=== PATIENT | female | born 1970 | race Hispanic/Latino ===

== ENCOUNTER 2018-09-06 22:03 | Emergency (ER) | payer MEDICARE, OTHER ==
[2018-09-06 22:27] LABS: APPEARANCE,URINE Clear (CLEAR); BILIRUBIN,URINE Negative (NEGATIVE); COLOR,URINE Yellow (YELLOW); GLUCOSE, URINE (UA) Negative (NEGATIVE); KETONES,URINE Negative (NEGATIVE); LEUKOCYTE ESTERASE ,URINE Moderate (NEGATIVE); NITRATE,URINE Negative (NEGATIVE); OCCULT BLOOD,URINE Negative (NEGATIVE); PH,URINE 6.5 (5.0-8.0); PROTEIN,URINE Negative (NEGATIVE)
[2018-09-06 22:42] LABS: ABG OXYGEN SATURATION 82.6 % (95.0-99.0); HCO3,VENOUS BLOOD GAS 21.3 (21.0-28.0); PCO2,VENOUS BLOOD GAS 36 (32-45); PH,VENOUS BLOOD GAS 7.395 (7.350-7.450)
[2018-09-06 22:50] LABS: BACTERIA,URINE Rare /HPF (None Seen); RBC,URINE None Seen /HPF (0-1)
[2018-09-06 22:51] LABS: BASOPHILS % (AUTO) 0.6 % (0.0-5.0); EOSINOPHILS % (AUTO) 1.7 % (0.0-8.0); HEMATOCRIT 36.9 % (36-48); LYMPHOCYTES % (AUTO) 30.4 % (21.0-51.0); MEAN CORPUSCULAR HEMOGLOBIN 29.4 pg (27.0-33.0); MEAN CORPUSCULAR HGB CONC 34.1 g/dL (32.0-36.0); MEAN CORPUSCULAR VOLUME 86.3 fL (79-99); NEUTROPHILS % (AUTO) 58.3 % (40.0-77.0); PLATELET COUNT (AUTO) 218 K/uL (130-400); RED BLOOD CELL COUNT(AUTO) 4.27 MIL/uL (4.00-5.50); RED CELL DISTRIBUTION WIDTH 12.2 % (11.0-15.5); WHITE BLOOD COUNT (AUTO) 6.4 K/uL (4.8-10.8)
[2018-09-06 22:51] LABS: MUCUS,URINE Few LPF (None Seen); SQUAMOUS EPITHELIAL CELL,UR Few /HPF (0-2)
[2018-09-06 23:00] LABS: CREATININE 0.8 mg/dL (0.5-1.5); POTASSIUM 3.8 mmol/L (3.5-5.1)
[2018-09-06 23:13] LABS: ALBUMIN 3.6 g/dL (3.5-5.0); BILIRUBIN,TOTAL 0.3 mg/dL (0.2-1.0); THYROID STIMULATING HORMONE 3.7 uIU/mL (0.36-3.74); TOTAL PROTEIN, SERUM 6.7 g/dL (6.0-8.3)
== END 2018-09-07 00:06 | disposition home or self-care (01) ==
LOC: EDH 22:03
DX: N39.0 Urinary tract infection, site not specified (principal); R10.13 Epigastric pain; R42 Dizziness and giddiness; M54.2 Cervicalgia; Z98.890 Other specified postprocedural states
CPT/HCPCS: 36415; 36600; 71045; 80053; 81001; 81025; 82435; 82803; 82947; 83605; 83690; 84132; 84295; 84443; 84484; 85025; 93005

== ENCOUNTER → 2024-11-23 | Outpatient (CLI) | payer OTHER ==
--- NOTE | 2024-11-23 12:01 | HMCIMG ---
CT CORONARY CALCIFICATION SCORING: Anatomic images were reviewed. The calcium score is being generated and reported separately. This report is for the visualized anatomy only. Visualized portions of the lungs are clear. Hilar and mediastinal structures appear normal. Osseous structures are unremarkable. Impression: 1. Negative noncardiac anatomic findings. 2. The calcium score is 0 consistent with absence of calcified plaque. CT was performed with one or more following dose reduction techniques: automated exposure control, adjustment of the mA and kv according to patient's size, or use of a iterative reconstruction technique.
== END | disposition home or self-care (01) ==
LOC: RAH 08:30
PROVIDERS: ATTEND Internal Medicine Cardiovascular Disease
DX: Z13.6 Encounter for screening for cardiovascular disorders (principal)
CPT/HCPCS: 75571

== ENCOUNTER 2025-07-03 16:21 | Emergency (ER) | payer OTHER ==
[~2025-07-03] VITALS: Ht 162.6 cm; Wt 71.7 kg
--- NOTE | 2025-07-03 16:32 | ERN ---
ED Note History of Present Illness Stated Complaint: DIZZINESS Chief Complaint: Dizzy/Light Headed Time Seen by MD: 16:24 Dictation: 55-YEAR-OLD FEMALE COMING IN FROM LOCAL URGENT CARE WITH HER SON WITH COMPLAINTS OF DIZZINESS AND VERTIGO WORSE WHEN SHE TURNS HER HEAD ONSET WAS THIS MORNING. SHE STATES ADDITIONALLY SHE WAS WALKING HER DOG THIS MORNING AND SHE FELL BECAUSE OF THE VERTIGO. SHE SAID SHE WAS DIAGNOSED WITH VERTIGO APPROXIMATELY 15 YEARS AGO BY HER DOCTOR IN [place] HOWEVER WAS NEVER TREATED. NIH IS 0, GAIT IS STEADY TO TRIAGE. Allergies: Coded Allergies: sulfamethoxazole (Unverified Allergy, Unknown, 07/03/25) trimethoprim (Unverified Allergy, Unknown, 07/03/25) Past Medical History Past Medical History: Hypertension Surgical History: Other History: Not Applicable RN Note Reviewed/Agreed w/PFSH: Yes Review of System Dictation CONSTITUTIONAL: NEGATIVE EXCEPT FOR HPI HEAD/FACE: NEGATIVE EXCEPT FOR HPI EENT: NEGATIVE EXCEPT FOR HPI RESPIRATORY: NEGATIVE EXCEPT FOR HPI GASTROINTESTINAL/ABDOMINAL: NEGATIVE EXCEPT FOR HPI NAUSEA VOMITING GENITOURINARY: NEGATIVE EXCEPT FOR HPI MUSCULOSKELETAL: NEGATIVE EXCEPT FOR HPI INTEGUMENTARY: NEGATIVE EXCEPT FOR HPI NEUROLOGICAL/PSYCH: NEGATIVE EXCEPT FOR HPI DIZZINESS HEMATOLOGIC/LYMPHATIC: NEGATIVE EXCEPT FOR HPI ALL SYSTEMS NEGATIVE, EXCEPT NOTED ABOVE. 13 POINT REVIEW OF SYSTEMS ASSESSED AND ALL NEGATIVE EXCEPT FOR ABOVE. Initial Vital Sign VS Vital Signs Date Time Temp Pulse Resp B/P (MAP) Pulse Ox O2 Delivery O2 Flow Rate FiO2 07/03/25 16:23 97.9 73 20 139/83 99 Room Air 0 07/03/25 17:10 21 Physical Exam Dictation VITAL SIGNS REVIEWED GENERAL APPEARANCE: ALERT, ORIENTED X 3, NO ACUTE DISTRESS, WELL DEVELOPED, NOURISHED. HEAD AND FACE: NON-TRAUMATIC. EYES: PERRL, PINK CONJUNCTIVAS, EYELID NO TRAUMA, ANTERIOR CHAMBER WITH ARCUS SENILIS. RIGHT HORIZONTAL NYSTAGMUS, REPRODUCES VERTIGO EARS: PINNAS INTACT AND NO SIGNS OF TRAUMA OR ERYTHEMA EAR CANALS CLEAR AND NO DISCHARGE TM NO ERYTHEMA NOSE: NO DISCHARGE, NO BLEEDING. OROPHARYNX: MOUTH NORMAL, TONGUE PINK, PHARYNX CLEAR,NO ERYTHEMA, TONSILS NO EXUDATES, NO ABSCESSES NOTED, MUCOUS MEMBRANE MOIST NECK: SUPPLE, NON-TENDER, NO THYROMEGALY, NO MASSES, NO JVD, NO BRUITS BREAST:DEFERRED CHEST:NO TENDERNESS, NO CREPITUS, NO PARADOXICAL MOVEMENT, NO RETRACTIONS LUNGS:CLEAR, WELL-VENTILATED, SYMMETRIC, NO RALES, NO WHEEZING, NO RHONCHI, NO STRIDOR, GOOD BREATH SOUNDS BILATERALLY HEART: REGULAR RATE, REGULAR RHYTHM, NO MURMUR, NO GALLOPS VASCULAR: NO PERIPHERAL EDEMA, ABDOMEN: SOFT, POSITIVE BOWEL SOUNDS, NONDISTENDED, NO GUARDING, NONTENDER, NO REBOUND, NO MASSES NO HEPATOMEGALY, NO SPLENOMEGALY, NO SALEH'S SIGN, NO HERNIAS. RECTAL: DEFERRED GENITAL: DEFERRED NEUROLOGICAL: NORMAL SPEECH, MOTOR FUNCTION INTACT, SENSORY FUNCTION INTACT MUSCULOSKELETAL: NECK NONTENDER, FULL RANGE OF MOTION, BACK NONTENDER, FULL RANGE OF MOTION, EXTREMITIES: NONTENDER, FULL RANGE OF MOTION SKIN: COLOR PINK, DRY, NO TURGOR, NO RASH, NO LACERATIONS, NO ABRASIONS, NO CONTUSIONS. LYMPHATIC: DEFERRED Results (Laboratory/Radiology) Laboratory/Radiology Laboratory Tests Test 07/03/25 16:56 White Blood Count 6.9 K/uL (4.8-10.8) Red Blood Count 5.04 MIL/uL (4.00-5.50) Hemoglobin 15.6 g/dL (12.0-16.0) Hematocrit 44.4 % (36-48) Mean Corpuscular Volume 88.1 fL (79-99) Mean Corpuscular Hemoglobin 31.0 pg (27.0-33.0) Mean Corpuscular Hemoglobin Concent 35.1 g/dL (32.0-36.0) Red Cell Distribution Width 12.3 % (11.0-15.5) Platelet Count 266 K/uL (130-400) Mean Platelet Volume 9.5 fL (7.5-10.5) Immature Granulocyte % (Auto) 0.4 % (0-1) Neutrophils (%) (Auto) 82.1 % (40.0-77.0) H Lymphocytes (%) (Auto) 14.3 % (21.0-51.0) L Monocytes (%) (Auto) 2.6 % (3.0-13.0) L Eosinophils (%) (Auto) 0.3 % (0.0-8.0) Basophils (%) (Auto) 0.3 % (0.0-5.0) Neutrophils # (Auto) 5.7 K/uL (1.8-7.7) Lymphocytes # (Auto) 1.0 K/uL (1.0-4.8) Monocytes # (Auto) 0.2 K/uL (0.1-1.0) Eosinophils # (Auto) 0.02 K/uL (0.00-0.70) Basophils # (Auto) 0.02 K/uL (0.00-0.20) Absolute Immature Granulocyte (auto 0.03 K/uL (0-1) Nucleated Red Blood Cells 0.0 % (0.0-0.19) Sodium Level 139 mmol/L (136-145) Potassium Level 3.8 mmol/L (3.5-5.1) Chloride Level 102 mmol/L (101-111) Carbon Dioxide Level 28 mmol/L (21-32) Blood Urea Nitrogen 10 mg/dL (7-18) Creatinine 0.6 mg/dL (0.5-1.0) Glomerular Filtration Rate Calc 107 mL/min (>90) Random Glucose 103 mg/dL (70-105) Total Calcium 10.5 mg/dL (8.5-10.1) H Troponin I High Sensitivity 12 ng/L (4-50) CLINICAL HISTORY: DIZZINESS/VERTIGO ONSET THIS MORNING TECHNIQUE: Axial computed tomography images of the head/brain without intravenous contrast. COMPARISON: None provided. FINDINGS: BRAIN: No evidence of acute hemorrhage. No mass lesion. No CT evidence for acute territorial infarct. No midline shift or extra-axial collections. VENTRICLES: No hydrocephalus. ORBITS: The orbits are unremarkable. SINUSES AND MASTOIDS: The paranasal sinuses and mastoid air cells are clear. BONES: No fracture. SOFT TISSUES: Unremarkable. IMPRESSION: No acute intracranial abnormality. /[facility] Labs Reviewed?: Yes EKG: (+) NSR EKG Comment: EKG NORMAL SINUS RHYTHM/HEART RATE 66/AXIS NORMAL/NO ECTOPY ED Course ED Course Orders Procedure Category Date Status Time Ct Head/Brain W/O CT 07/03/25 Resulted Contrast 16:29 Cbc With Differential LAB 07/03/25 Complete 16:29 Troponin I High LAB 07/03/25 Complete Sensitivity 16:29 12 Lead Ekg Tracing- EKG 07/03/25 Complete Technical 16:29 0.9%Nacl 1000ml (Ns PHA 07/03/25 In Process 1000ml) 16:30 Ondansetron 4mg Inj PHA 07/03/25 In Process (Zofran 4mg Inj) 16:30 Basic Metabolic Panel LAB 07/03/25 Complete 16:29 Dexamethasone 4mg/Ml PHA 07/03/25 In Process 1ml Vial (Dexametha 16:30 Meclizine Hcl 25 Mg PHA 07/03/25 In Process (Antivert 25 Mg) 16:30 Current Medications Medications (Trade) Dose Ordered Sig/Hugo Route PRN Reason Start Time Stop Time Status Last Admin Dose Admin Dexamethasone Sodium Phosphate (dexaMETHasone 4MG/ML 1ML VIAL) 8 mg ONCE IVP 07/03/25 16:30 07/03/25 20:30 07/03/25 16:58 Meclizine HCl (ANTIvert 25 mg) 50 mg ONCE PO 07/03/25 16:30 07/03/25 20:30 07/03/25 16:58 Ondansetron HCl (zoFRAN 4MG INJ) 4 mg ONCE IVP 07/03/25 16:30 07/03/25 20:30 07/03/25 16:58 Sodium Chloride 1,000 ml @ 0 mls/hr ONCE IV 07/03/25 16:30 07/04/25 16:29 07/03/25 16:59 Vital Signs Date Time Temp Pulse Resp B/P (MAP) Pulse Ox O2 Delivery O2 Flow Rate FiO2 07/03/25 17:10 98.1 64 19 126/65 99 Room Air* 0 21 07/03/25 16:23 97.9 73 20 139/83 99 Room Air 0 1912/PATIENT IS ALERT AND ORIENTED X4 SPEECH IS CLEAR STATES SHE FEELS MARKEDLY IMPROVED AFTER FLUIDS STEROIDS AND MECLIZINE. DISCHARGED HOME WITH HER STATES SHE HAS A NEUROLOGIST IN [place] AND CAN SEE HIM NEXT WEEK. ALL QUESTIONS ANSWERED HEART Score Response (Comments) Value History: Low suspicion (0) 0 Age: 45-65yrs (+1) 1 Risk Factors: 1-2 risk factors (+1) 1 Initial Troponin: Normal limit (0) 0 Total 2 Medical Decision Making MDM MDM: DIFFERENTIAL DIAGNOSIS: POSITIONAL VERTIGO/LABYRINTHITIS/CVA/ELECTROLYTE IMBALANCE/DEHYDRATION/INFECTION RATIONALE: TESTS CONSIDERED AND ORDERED SECONDARY TO SHARED DECISION MAKING INCLUDE: EKG/LABS/CT PREVIOUS OUTSIDE RECORDS REVIEWED: OLD ER VISITS. RISK OF COMPLICATION AND/OR MORBIDITY OR MORTALITY OF PATIENT MANAGEMENT: NONE MEDICATIONS-PER MEDICATION RECONCILIATION NEED FOR HOSPITALIZATION: PATIENT DOES NOT MEET CRITERIA FOR HOSPITALIZATION. NO NEED FOR EMERGENCY MAJOR/MINOR SURGERY: NO THERE ARE NO SOCIAL CONCERNS WITH THIS PATIENT. PRESCRIPTION DRUG MANAGEMENT MECLIZINE/PREDNISONE PRESCRIPTIONS WILL INCLUDE SYMPTOMATIC CARE PATIENT'S PRIOR EXTERNAL MEDICAL RECORDS FROM OTHER ER VISITS WERE REVIEWED BY ME INDICATED. PRIOR TESTING AND RESULTS FROM PREVIOUS VISITS WERE REVIEWED. PRIOR TESTS WERE TAKEN INTO ACCOUNT WITH MEDICAL DECISION MAKING AND RESOURCE UTILIZATION, INDEPENDENT HISTORIAN/HISTORIANS WERE USED TO OBTAIN COMPLETE MEDICAL HISTORY. I INDEPENDENTLY INTERPRETED THE TEST THAT WERE PERFORMED, RESULTS WERE REVIEWED BY ME AND CONSIDERED FINDINGS ON RADIOLOGY IF ORDERED. MEDICAL MANAGEMENT AND EXAMINATION INTERPRETATION DISCUSSIONS WERE HAD BY ME WITH OTHER QUALIFIED HEALTHCARE PROFESSIONALS INDICATED FOR THE PATIENT'S CARE. DX & DISP Disposition: Discharge Departure Impression: Primary Impression: Benign positional vertigo Additional Impressions: Labyrinthitis of right ear, Nausea & vomiting Condition: Stable Scripts Ondansetron (Ondansetron Odt) 4 Mg Tab.rapdis 1 TAB PO Q6HPRN PRN for nausea/vomiting for 4 Days, #16 TAB 0 Refills Prov: BOO HERRERA NP 07/03/25 Meclizine HCl (Meclizine HCl) 25 Mg Tablet 25 MG PO TID for vertigo, #30 TAB 0 Refills Prov: BOO HERRERA NP 07/03/25 Prednisone (Prednisone) 20 Mg Tablet 1 TAB PO AD for 6 Days, #14 TAB 0 Refills TAKE 1 TAB BY MOUTH THREE TIMES PER DAY X3 DAYS, THEN TAKE 1 TAB BY MOUTH TWICE A DAY X2 DAYS, THEN TAKE 1 TAB BY MOUTH ONCE A DAY X1 DAY. Prov: BOO HERRERA NP 07/03/25 Additional Instructions: FOLLOW-UP WITH PRIMARY CARE PROVIDER IN 1 TO 2 DAYS. TAKE MEDICATIONS DIRECTED HERE IN THE EMERGENCY ROOM. OKAY TO CONTINUE HOME MEDICATIONS UNLESS OTHERWISE DISCUSSED DURING YOUR VISIT IN THE EMERGENCY ROOM TODAY. RETURN TO YOUR NEAREST EMERGENCY ROOM IF SYMPTOMS WORSEN OR IF THERE IS NO IMPROVEMENT. CALL 911 IF YOU NEED IMMEDIATE ASSISTANCE. TAKE TYLENOL OR MOTRIN [id number] NEEDED AND IF NO CONTRAINDICATIONS ARE PRESENT. INCREASE ORAL HYDRATION. A WOUND CULTURE OR URINE CULTURE WAS ORDERED HERE IN THE EMERGENCY ROOM DEPARTMENT PLEASE FOLLOW-UP WITH PRIMARY CARE PROVIDER AND ADVISE THEM TO GET REPEAT PORTS FROM OUR FACILITY. IF YOU HAD ANY JENNIFER WRAP/SPLINTS THAT WERE APPLIED HERE, PLEASE DO NOT REMOVE THEM UNTIL YOU SEE YOUR PRIMARY CARE OR SPECIALTY. TAKE MECLIZINE EVERY 8 HOURS FOR THE NEXT THREE DAYS. TAKE PREDNISONE DIRECTED WITH FOOD UNTIL GONE. FOLLOW UP WITH THE YOUR NEUROLOGIST IN [place] SOON POSSIBLE Referrals: CALVIN SPENCER (PCP) Time of Disposition: 19:14 I have reviewed the case, and I agree with, Diagnosis and Plan BOO HERRERA NP Jul 03, 2025 16:32
[2025-07-03] MEDS: 0.9%NACL 1000ML 1,000 ML IV SCH (16:59)
[2025-07-03 17:10] LABS: IMMATURE GRANULOCYTE ABSOLUTE 0.03 K/uL (0-1); NUCLEATED RED BLOOD CELLS 0.0 % (0.0-0.19); PLATELET COUNT (AUTO) 266 K/uL (130-400); RED BLOOD CELL COUNT(AUTO) 5.04 MIL/uL (4.00-5.50); RED CELL DISTRIBUTION WIDTH 12.3 % (11.0-15.5); WHITE BLOOD COUNT (AUTO) 6.9 K/uL (4.8-10.8)
[2025-07-03 17:19] LABS: CREATININE 0.6 mg/dL (0.5-1.0); GLOMERULAR FILTR. RATE CALC 107.0 mL/min (>90); GLUCOSE,RANDOM 103.0 mg/dL (70-105); SODIUM SERUM 139.0 mmol/L (136-145); UREA NITROGEN, BLOOD 10.0 mg/dL (7-18)
--- NOTE | 2025-07-03 17:36 | HMCIMG ---
EXAM: CT Head Without IV contrast. CLINICAL HISTORY: DIZZINESS/VERTIGO ONSET THIS MORNING TECHNIQUE: Axial computed tomography images of the head/brain without intravenous contrast. COMPARISON: None provided. FINDINGS: BRAIN: No evidence of acute hemorrhage. No mass lesion. No CT evidence for acute territorial infarct. No midline shift or extra-axial collections. VENTRICLES: No hydrocephalus. ORBITS: The orbits are unremarkable. SINUSES AND MASTOIDS: The paranasal sinuses and mastoid air cells are clear. BONES: No fracture. SOFT TISSUES: Unremarkable. IMPRESSION: No acute intracranial abnormality. /[place]
--- NOTE | 2025-07-03 17:53 | EKG ---
[facility] Test Date: 2025-07-03 Test Time: 16:42:15 Pat Name: NAHUM FAIRBANKS Department: ED Room: Gender: F Crm Manager: [id number] : 1970 Requested By: BOO HERRERA Order Number: [id number] Reading MD: Qiana Albarado Measurements Intervals [place] Rate: 66 P: 53 [place]: 154 QRS: 52 QRSD: 107 T: 56 QT: 418 QTc: 439 Interpretive Statements Sinus rhythm Compared to ECG 09/06/2018 22:28:46 Sinus bradycardia no longer present Electronically Signed On 07-05-2025 12:37:53 CDT by Qiana Albarado Please click the below link to view image of tracing.
[2025-07-03] MEDS ORDERED: MECL-302 PO (19:15)
[2025-07-03] MEDS ORDERED: PRED20TA3 PO (19:15)
[2025-07-03] MEDS ORDERED: ONDA-243 PO (19:16)
[2025-07-03 19:35] VITALS: BP 122/61; PULSE 65; RESP 16; TEMP 98.1; O2SAT 100
== END 2025-07-03 19:40 | disposition home or self-care (01) ==
LOC: EDH 16:21
DX: H81.10 Benign paroxysmal vertigo, unspecified ear (principal); H83.01 Labyrinthitis, right ear; R11.2 Nausea with vomiting, unspecified; I10 Essential (primary) hypertension; Z88.1 Allergy status to other antibiotic agents; Z88.2 Allergy status to sulfonamides
CPT/HCPCS: 99285; 96374; 70450; 96361; 96375; 84484; 80048; 85025; 36415; 93005; J1100; J7030; J2405